=== PATIENT | female | born 1970 | race African-American/Black ===

== ENCOUNTER 2019-08-04 16:49 | Emergency (ER) | payer OTHER ==
[~2019-08-04] VITALS: Ht 160 cm; Wt 68.0 kg
[2019-08-04] MEDS ORDERED: KLOR-CON 10 ER10 MEQ PO (17:15)
[2019-08-04] MEDS ORDERED: ATENOLOL 25 MG25 M1 PO (17:16)
[2019-08-04] MEDS ORDERED: HYDROCHLOROTHIA25 M1 PO (17:16)
[2019-08-04] MEDS ORDERED: CALCIUM + VITA1 EACH PO (17:17)
[2019-08-04] MEDS ORDERED: OLOPATADINE HC2.5 ML OPHTHALMIC (17:18)
[2019-08-04] MEDS ORDERED: ASPIRIN EC325 MG PO (17:18)
[2019-08-04] MEDS ORDERED: SYSTANE ULTRA 010 ML OPHTHALMIC (17:18)
[2019-08-04] MEDS ORDERED: MULTI VITAMIN1 EACH PO (17:19)
[2019-08-04] MEDS ORDERED: DEPAKOTE 250MG250 MG PO (17:19)
[2019-08-04] MEDS ORDERED: NEURONTIN 300M300 M2 PO (17:19)
[2019-08-04] MEDS ORDERED: DIVALPROEX SOD500 M1 PO (17:20)
[2019-08-04] MEDS ORDERED: PHENYTOIN SODI300 MG PO (17:20)
[2019-08-04] MEDS ORDERED: TRAZODONE HCL100 MG PO (17:21)
[2019-08-04] MEDS ORDERED: IBUPROFEN 400400 M2 PO (17:21)
[2019-08-04] MEDS ORDERED: OLANZAPINE15 M1 PO (17:21)
[2019-08-04] MEDS ORDERED: KEFLEX500 M1 PO (17:53)
[2019-08-04 18:17] VITALS: BP 143/93
== END 2019-08-04 18:25 | disposition home or self-care (01) ==
LOC: ER 16:49
DX: S80.812A Abrasion, left lower leg, initial encounter (principal); L03.116 Cellulitis of left lower limb; I10 Essential (primary) hypertension; W22.8XXA Striking against or struck by other objects, initial encounter; Y93.89 Activity, other specified; Y92.89 Other specified places as the place of occurrence of the external cause; Y99.8 Other external cause status